=== PATIENT | male | born 1930 | race Caucasian/White ===

== ENCOUNTER → 2016-09-14 | Outpatient (CLI) | payer MEDICARE, OTHER ==
[~2016-09-14] MED LIST: AMLO5TAB2 PO; ASPI1TAB69 PO; ASPI81TA11 PO; ASPI81TA82 PO; EPIN1DRO EACH EYE; FLUO0.1S2 EACH EYE; FLUO0.1S9 EACH EYE; GABA300 PO; GABA600T PO; LINA145C PO; LISI-363 PO; LISI-515 PO; METO25 PO; NIAC500 PO; NIAC500C PO; NORV5TAB PO; PENT400 PO; PENT400T19 PO; SODI1SOL8 EACH EYE; WARF-18 PO; WARF-23 PO; ZOCO20TA PO; [UNRECOGNIZED DRUG - CODE] EACH EYE
[2016-09-14 12:41] LABS: BASOPHIL % 0.9 % (0.0-2.0); EOSINOPHIL # 0.2 TH/MM3 (0-0.4); EOSINOPHIL % 4.4 % (0.0-4.0); HEMATOCRIT 42.6 % (39.0-51.0); HEMO FLAGS DIFF FINAL; LYMPH % 46.6 % (9.0-44.0); LYMPHOCYTE # 2.5 TH/MM3 (1.0-4.8); MEAN CELL VOLUME 96.1 FL (80.0-100.0); MEAN CORPUSCULAR HEMOGLOBIN 32.1 PG (27.0-34.0); MEAN CORPUSCULAR HGB CONC 33.4 % (32.0-36.0); MONO % 10.8 % (0.0-8.0); NEUT % 37.3 % (16.0-70.0); PLATELET COUNT 163 TH/MM3 (150-450); RED BLOOD COUNT 4.43 MIL/MM3 (4.50-5.90); RED CELL DISTRIBUTION WIDTH 13.4 % (11.6-17.2); WHITE BLOOD COUNT 5.3 TH/MM3 (4.0-11.0)
[2016-09-14 12:59] LABS: ANION GAP 8 MEQ/L (5-15); BICARBONATE 26.1 MEQ/L (21.0-32.0); BLOOD UREA NITROGEN 16 MG/DL (7-18); CHLORIDE 108 MEQ/L (98-107); GLUCOSE,FASTING 131 MG/DL (74-99); POTASSIUM 4.9 MEQ/L (3.5-5.1); SODIUM (NA) 142 MEQ/L (136-145)
[2016-09-14 13:11] LABS: ALKALINE PHOSPHATASE 60 U/L (45-117); ALT (GPT) 20 U/L (12-78); AST (GOT) 12 U/L (15-37); GLOMERULAR FILTRATION RATE 64 ML/MIN (>89); LDL CHOLESTEROL 44 MG/DL (0-99); TOTAL BILIRUBIN ADULT 0.7 MG/DL (0.2-1.0)
[2016-09-14 16:45] LABS: HEMOGLOBIN A1b 1.8 %; HEMOGLOBIN Ao 84.1 %; HEMOGLOBIN LA1C 2.1 %; HEMOGLOBIN P3 3.8 %
== END ==
LOC: PLAB 07:59
PROVIDERS: ATTEND Urology
DX: I10 Essential (primary) hypertension (principal); N20.0 Calculus of kidney; E78.2 Mixed hyperlipidemia; I35.0 Nonrheumatic aortic (valve) stenosis; E03.8 Other specified hypothyroidism; E11.9 Type 2 diabetes mellitus without complications; Z12.5 Encounter for screening for malignant neoplasm of prostate
CPT/HCPCS: 36415; 80053; 80061; 83036; 84443; 85025; G0103

== ENCOUNTER → 2017-03-23 | Outpatient (CLI) | payer MEDICARE, OTHER ==
[~2017-03-23] MED LIST changes: -ASPI1TAB69 PO; -ASPI81TA82 PO; -FLUO0.1S2 EACH EYE; -GABA300 PO; -LISI-363 PO; -METO25 PO; -NIAC500 PO; -NORV5TAB PO; -PENT400 PO; -PENT400T19 PO
[2017-03-23 13:31] LABS: AUTOMATED NEUTROPHIL # 2.6 TH/MM3 (1.8-7.7); BASOPHIL % 0.7 % (0.0-2.0); EOSINOPHIL # 0.2 TH/MM3 (0-0.4); EOSINOPHIL % 3.8 % (0.0-4.0); HEMATOCRIT 42.1 % (39.0-51.0); HEMO FLAGS DIFF FINAL; LYMPH % 44.6 % (9.0-44.0); LYMPHOCYTE # 2.7 TH/MM3 (1.0-4.8); MEAN CORPUSCULAR HEMOGLOBIN 31.8 PG (27.0-34.0); MEAN CORPUSCULAR HGB CONC 33.1 % (32.0-36.0); MONO % 8.8 % (0.0-8.0); NEUT % 42.1 % (16.0-70.0); PLATELET COUNT 152 TH/MM3 (150-450); RED BLOOD COUNT 4.39 MIL/MM3 (4.50-5.90); RED CELL DISTRIBUTION WIDTH 13.9 % (11.6-17.2); WHITE BLOOD COUNT 6.1 TH/MM3 (4.0-11.0)
[2017-03-23 13:33] LABS: ANION GAP 9 MEQ/L (5-15); AST (GOT) 12 U/L (15-37); BICARBONATE 24.5 MEQ/L (21.0-32.0); BLOOD UREA NITROGEN 9 MG/DL (7-18); CHLORIDE 106 MEQ/L (98-107); GLOMERULAR FILTRATION RATE 68 ML/MIN (>89); GLUCOSE,FASTING 142 MG/DL (74-99); POTASSIUM 3.9 MEQ/L (3.5-5.1); SODIUM (NA) 139 MEQ/L (136-145)
[2017-03-23 13:50] LABS: ALKALINE PHOSPHATASE 60 U/L (45-117); ALT (GPT) 20 U/L (12-78); HDL CHOLESTEROL 37.2 MG/DL (40.0-60.0); LDL CHOLESTEROL 60 MG/DL (0-99); TOTAL BILIRUBIN ADULT 0.5 MG/DL (0.2-1.0)
[2017-03-23 15:25] LABS: HEMOGLOBIN A1a 1.1 %; HEMOGLOBIN A1b 1.8 %; HEMOGLOBIN Ao 83.4 %; HEMOGLOBIN LA1C 2.3 %; HEMOGLOBIN P3 3.8 %
== END ==
LOC: PLAB 08:34
PROVIDERS: ATTEND Family Medicine
DX: I10 Essential (primary) hypertension (principal); E78.2 Mixed hyperlipidemia; I48.91 Unspecified atrial fibrillation; E11.9 Type 2 diabetes mellitus without complications; E03.8 Other specified hypothyroidism
CPT/HCPCS: 36415; 80053; 80061; 83036; 84443; 85025

== ENCOUNTER → 2017-04-15 | Outpatient (CLI) | payer MEDICARE, OTHER | LOC: PLAB 08:27 | PROVIDERS: ATTEND Family Medicine | DX: K59.00 Constipation, unspecified (principal); R14.0 Abdominal distension (gaseous) ==

== ENCOUNTER → 2017-06-14 | Outpatient (CLI) | payer MEDICARE, OTHER ==
[~2017-06-14] MED LIST changes: -ASPI81TA11 PO; +ASPI81TA23 PO
[2017-06-14 13:04] LABS: POTASSIUM 4.7 MEQ/L (3.5-5.1)
[2017-06-14 13:08] LABS: BICARBONATE 27.4 MEQ/L (21.0-32.0)
== END ==
LOC: PLAB 10:50
PROVIDERS: ATTEND Internal Medicine Cardiovascular Disease
DX: I10 Essential (primary) hypertension (principal); I34.0 Nonrheumatic mitral (valve) insufficiency; R06.02 Shortness of breath; I48.91 Unspecified atrial fibrillation
CPT/HCPCS: 36415; 80048

== ENCOUNTER → 2017-09-16 | Outpatient (CLI) | payer MEDICARE, OTHER ==
[2017-09-16 13:49] LABS: AUTOMATED NEUTROPHIL # 2.2 TH/MM3 (1.8-7.7); BASOPHIL % 0.8 % (0.0-2.0); EOSINOPHIL # 0.2 TH/MM3 (0-0.4); EOSINOPHIL % 4.2 % (0.0-4.0); HEMOGLOBIN 13.5 GM/DL (13.0-17.0); LYMPH % 45.3 % (9.0-44.0); LYMPHOCYTE # 2.6 TH/MM3 (1.0-4.8); MEAN CELL VOLUME 96.6 FL (80.0-100.0); MEAN CORPUSCULAR HEMOGLOBIN 32.6 PG (27.0-34.0); MEAN CORPUSCULAR HGB CONC 33.7 % (32.0-36.0); MEAN PLATELET VOLUME 7.9 FL (7.0-11.0); MONO % 10.3 % (0.0-8.0); MONOCYTE # 0.6 TH/MM3 (0-0.9); NEUT % 39.4 % (16.0-70.0); PLATELET COUNT 177 TH/MM3 (150-450); RED BLOOD COUNT 4.14 MIL/MM3 (4.50-5.90); RED CELL DISTRIBUTION WIDTH 13.4 % (11.6-17.2); WHITE BLOOD COUNT 5.7 TH/MM3 (4.0-11.0)
[2017-09-16 13:58] LABS: CARCINOEMBRYONIC ANTIGEN 0.7 NG/ML (0.2-5.0)
[2017-09-16 14:11] LABS: ALBUMIN 3.8 GM/DL (3.4-5.0); ALT (GPT) 18 U/L (12-78); AST (GOT) 15 U/L (15-37); BICARBONATE 26.4 MEQ/L (21.0-32.0); BLOOD UREA NITROGEN 15 MG/DL (7-18); CALCIUM 8.7 MG/DL (8.5-10.1); CHLORIDE 107 MEQ/L (98-107); CHOLESTEROL 148 MG/DL (120-200); CREATININE 0.99 MG/DL (0.60-1.30); GLOMERULAR FILTRATION RATE 72 ML/MIN (>89); GLUCOSE,FASTING 141 MG/DL (74-99); SODIUM (NA) 139 MEQ/L (136-145); TRIGLYCERIDES 198 MG/DL (42-150)
[2017-09-16 14:21] LABS: ALKALINE PHOSPHATASE 58 U/L (45-117); CHOLESTEROL/ HDL RATIO 2.91 RATIO; HDL CHOLESTEROL 50.7 MG/DL (40.0-60.0); LDL CHOLESTEROL 58 MG/DL (0-99); TOTAL BILIRUBIN ADULT 0.5 MG/DL (0.2-1.0); TOTAL PROTEIN 7.5 GM/DL (6.4-8.2)
[2017-09-16 14:34] LABS: CA 19-9 10.1 U/ML (0.0-35.0)
== END ==
LOC: PLAB 08:06
PROVIDERS: ATTEND Internal Medicine Gastroenterology
DX: C61 Malignant neoplasm of prostate (principal); E11.9 Type 2 diabetes mellitus without complications; R97.20 Elevated prostate specific antigen [PSA]; R41.3 Other amnesia; I65.23 Occlusion and stenosis of bilateral carotid arteries; I48.91 Unspecified atrial fibrillation; K59.00 Constipation, unspecified; E78.2 Mixed hyperlipidemia; I10 Essential (primary) hypertension; I35.0 Nonrheumatic aortic (valve) stenosis; E03.8 Other specified hypothyroidism; Z68.30 Body mass index [BMI] 30.0-30.9, adult; Z90.49 Acquired absence of other specified parts of digestive tract
CPT/HCPCS: 36415; 80053; 80061; 82378; 83036; 84153; 84443; 85025; 86301